=== PATIENT | female | born 1950 | race Caucasian/White ===

== ENCOUNTER 2018-03-24 12:49 | Day surgery (SDC) | payer MEDICARE, OTHER ==
[2018-03-19 09:31] VITALS: BMI 30.3
[~2018-03-24 12:49] MED LIST: DEXAMETHASONE SOD PHOSPHATE 10 MG/ML 1 ML VIAL IV ONE; HYDROmorphone 0.5 MG/0.5 ML SYRINGE IVP PRN; LACTATED RINGERS 1,000 ML IV SCH; MIDAZOLAM 2 MG/2 ML VIAL IV PRN; ONDANSETRON 4 MG/2 ML VIAL IVP ONE; Pre Op ABX Message 1 EACH MISC MISCELLANE ONE
[2018-03-24 13:46] VITALS: TEMP 98.1
[2018-03-24] MEDS ORDERED: IV FLUID CONTINUATION 450 ML IV ONE (15:38)
[2018-03-24] MEDS ORDERED: PROPOFOL 10 MG/ML 20 ML VIAL IV ONE (15:48)
[2018-03-24] MEDS ORDERED: MIDAZOLAM 2 MG/2 ML VIAL ONE (15:48)
[2018-03-24] MEDS ORDERED: LIDOCAINE 1% INJ 10MG/ML (20 ML MDV) ONE (15:48)
[2018-03-24] MEDS ORDERED: fentaNYL (PF) 50 MCG/ML 2 ML AMP ONE (15:48)
[2018-03-24] MEDS ORDERED: ROPIVACAINE 5 MG/ML 30 ML VIAL MISCELLANE ONE (15:52)
[2018-03-24] MEDS ORDERED: LIDOCAINE 2% (PF) 20 MG/ML 10 ML AMP SQ ONE (15:52)
[2018-03-24 15:57] VITALS: RESP 18
[2018-03-24 16:09] VITALS: PULSE 74
[2018-03-24 16:26] VITALS: BP 114/75
--- NOTE | 2018-03-24 20:07 | OP ---
OPERATIVE REPORT DATE OF SERVICE: 03/24/2018 DESCRIPTION OF PROCEDURE: The patient was taken to the Operative Suite where a sedation was administered by the Department of Anesthesia. I then performed a local injection along the line of the incision with a combination of Marcaine and Xylocaine both without epinephrine. The hand was then prepped and draped in the usual manner. The arm was elevated, exsanguinated and the cuff was inflated to 250 mm of mercury. A longitudinal incision was made along the ring finger ray distal to the wrist crease. Dissection was taken through the skin and subcutaneous tissue, initially sharp through the skin and then blunt through the subcutaneous tissue to ensure protection of any potential terminal transverse branches of the palmar cutaneous nerve. The palmar fascia was then incised under direct vision longitudinally exposing the transverse carpal ligament. The transverse carpal ligament also was incised under direct vision. The dissection was then continued proximally beneath the skin under direct vision to release the distal forearm fascia. The median nerve was then reflected free of tenosynovium to ensure no adhesions. The tourniquet was then released. The wound was then irrigated and the skin was closed with a running 5-0 nylon suture. A soft bulky dressing was applied including a volar plaster splint holding the wrist in a neutral slightly extended position. The patient was then taken to the Recovery Room in satisfactory condition. GREGODL / IJN: [id number] /
== END 2018-03-24 16:37 | disposition home or self-care (01) ==
LOC: OR 12:49
PROVIDERS: ATTEND Orthopaedic Surgery Hand Surgery
DX: G56.02 Carpal tunnel syndrome, left upper limb (principal); I10 Essential (primary) hypertension; E78.5 Hyperlipidemia, unspecified; E03.9 Hypothyroidism, unspecified; K21.9 Gastro-esophageal reflux disease without esophagitis; R00.2 Palpitations; E66.9 Obesity, unspecified; Z68.30 Body mass index [BMI] 30.0-30.9, adult; L30.9 Dermatitis, unspecified; Z79.82 Long term (current) use of aspirin; Z79.890 Hormone replacement therapy; Z79.1 Long term (current) use of non-steroidal anti-inflammatories (NSAID); Z79.891 Long term (current) use of opiate analgesic; Z79.899 Other long term (current) drug therapy
CPT/HCPCS: 64721; J2250; J1100; J2001 ×2; J2405; J3010; J2795; J2704

== ENCOUNTER 2024-08-28 01:19 | Observation (INO) | payer MEDICARE ==
--- NOTE | 2024-08-28 02:02 | ED ---
General Adult HPI - General Chief complaint: Extremity Problem,Nontraumatic Stated complaint: left arm pain Time Seen by Provider: 08/28/24 01:57 Source: patient, family, RN notes reviewed Mode of arrival: ambulatory Limitations: no limitations - History of Present Illness Initial comments: Patient is a 74-year-old female with a past medical history significant of hypothyroidism presenting to the ER for evaluation of left upper extremity pain. Patient states for the past few days she has felt "off". She reports she does not feel lightheaded but states "close to it". She states this morning she woke up to her left upper arm pain, weakness and tingling with nausea. Patient states this subsided throughout the day and returned later in the day. Patient reports she did not want to go to sleep as she was concerned this may be cardiac related which prompted an emergency department visit. Patient denies any personal cardiac history but does report an extensive family cardiac history. Patient reports over the past few days she is also felt like her bra was too tight over her chest and recent palpitations yesterday. Patient has not taken a nything for her symptoms at this time. Only medication patient takes is Synthroid and PPI. She denies any current chest pain/dizziness, shortness of breath, fevers, cough, congestion, abdominal pain, back pain, urinary complaints or peripheral edema. - Related Data Home Medications Medication Instructions Recorded Confirmed Aspirin 81 mg PO DAILY 03/19/18 03/24/18 Lansoprazole [Prevacid] 15 mg PO DAILY 03/19/18 03/24/18 Levothyroxine Sodium [Synthroid] 88 mcg PO DAILY 03/19/18 03/24/18 Multivitamins, Thera [Multivitamin 1 tab PO DAILY 03/19/18 03/24/18 (formulary)] Allergies Allergy/AdvReac Type Severity Reaction Status Date / Time No Known Allergies Allergy Verified 08/28/24 01:25 Review of Systems ROS Statement: Those systems with pertinent positive or pertinent negative responses have been documented in the HPI. ROS Other: All systems not noted in ROS Statement are negative. Past Medical History Past Medical History: Hyperlipidemia, Osteoarthritis (OA), Thyroid Disorder Additional Past Medical History / Comment(s): MIGRAINE HEADACHE, OCCASIONAL HEART FLUTTER , History of Any Multi-Drug Resistant Organisms: None Reported Past Surgical History: Bladder Surgery, Hysterectomy, Tonsillectomy Additional Past Surgical History / Comment(s): D&C, RIGHT CARPAL TUNNEL RELEASE, RIGHT AND LEFT ARTHROSCOPIC KNEE, LASIK EYE SURGERY, COLONOSCOPY, Past Anesthesia/Blood Transfusion Reactions: No Reported Reaction Past Psychological History: No Psychological Hx Reported Past Alcohol Use History: Occasional Past Drug Use History: None Reported - Past Family History Mother Family Medical History: Cancer Sister(s) Family Medical History: Cancer Additional Family Medical History / Comment(s): COLON CANCER General Exam Limitations: no limitations General appearance: alert, in no apparent distress Head exam: Present: atraumatic, normocephalic, normal inspection Eye exam: Present: normal appearance, PERRL, EOMI. Absent: scleral icterus, conjunctival injection, periorbital swelling Pupils: Present: normal accommodation Respiratory exam: Present: normal lung sounds bilaterally. Absent: respiratory distress, wheezes, rales, rhonchi, stridor Cardiovascular Exam: Present: regular rate, normal rhythm, normal heart sounds. Absent: systolic murmur, diastolic murmur, rubs, gallop, clicks GI/Abdominal exam: Present: soft, normal bowel sounds. Absent: distended, tend erness, guarding, rebound, rigid Neurological exam: Present: alert, oriented X3, CN II-XII intact, other (mild weakness of RUE 4+ compared to left 5+) Skin exam: Present: warm, dry, intact, normal color. Absent: rash Course Vital Signs 08/28/24 08/28/24 08/28/24 01:20 02:43 03:15 Temperature 97.9 F Pulse Rate 67 67 60 Respiratory 18 16 Rate Blood Pressure 185/133 169/85 130/87 O2 Sat by Pulse 97 97 99 Oximetry - Reevaluation(s) Reevaluation #1: 08/28/24 03:[address] Elizabeth Flores, for admission. HEART score 4 EKG Findings - EKG Comments: EKG Findings:: EKG taken at 129 showing a sinus bradycardia with a first-degree AV block. No ST segment elevations or depressions. No T wave abnormalities. Ventricular rate 58, AR interval 302, QRS duration 93, QT/QTc 412/410. Medical Decision Making - Medical Decision Making Was pt. sent in by a medical professional or institution (, PA, [facility], urgent care, hospital, or alf...) When possible be specific @ -No Did you speak to anyone other than the patient for history (EMS, parent, family, police, friend...)? What history was obtained from this source @ -Patient's , at bedside, aiding in HPI and past medical history. Did you review nursing and triage notes (agree or disagree)? Why? @ -I reviewed and agree with nursing and triage notes Were old charts reviewed (outside hosp., previous admission, EMS record, old EKG, old radiological studies, urgent care reports/EKG's, alf records)? Report findings @ -No old charts were reviewed Differential Diagnosis (chest pain, altered mental status, abdominal pain women, abdominal pain men, vaginal bleeding, weakness, fever, dyspnea, syncope, headache, dizziness, GI bleed, back pain, seizure, CVA, palpatations, mental health, musculoskeletal)? @ -Differential Musculoskeletal: Muscular strain, contusion, ligament sprain, fracture, arthritis, septic arthritis, bursitis, cellulitis, muscle spasm, nerve compression, DVT, arterial occlusion, herpes zoster, electrolyte abnormality, tumor.... This is not meant to be in all inclusive list EKG interpreted by me (3pts min.). @ -As above X-rays interpreted by me (1pt min.). @ -CXR interpreted me negative for consolidations, pneumothorax perfusions. CT interpreted by me (1pt min.). @ -Official report pending at time of admission. U/S interpreted by me (1pt. min.). @ -None done What testing was considered but not performed or refused? (CT, X-rays, U/S, labs)? Why? @ -None What meds were considered but not given or refused? Why? @ -None Did you discuss the management of the patient with other professionals (professionals i.e. , PA, [facility], lab, RT, psych nurse, social science teacher, piece dyer, teacher, licensed loan officer, correctional case records supervisor)? Give summary @ -Case discussed with Dr. Elizabeth Flores, for admission. Was smoking cessation discussed for >3mins.? @ -No Was critical care preformed (if so, how long)? @ -No Were there social determinants of health that impacted care today? How? (Homelessness, low income, unemployed, alcoholism, drug addiction, transportation, low edu. Level, literacy, decrease access to med. care, assisted, rehab)? @ -No Was there de-escalation of care discussed even if they declined (Discuss DNR or withdrawal of care, Hospice)? DNR status @ -No What co-morbidities impacted this encounter? (DM, HTN, Smoking, COPD, CAD, Cancer, CVA, ARF, Chemo, Hep., AIDS, mental health diagnosis, sleep apnea, morbid obesity)? @ -hypothyroidism, hyperlipidemia Was patient admitted / discharged? Hospital course, mention meds given and route, prescriptions, significant lab abnormalities, going to OR and other pertinent info. @ -Admitted. 74-year-old female presented the ER for evaluation of left upper extremity pain/numbness and nausea. Upon rooming, history and physical exam completed. Patient is hypertensive at 185/133 vitals otherwise acceptable limits. Patient in no signs acute distress nontoxic-appearing. Initial troponin undetectable. Viral swabs negative. CXR interpreted me negative. CT brain/CTA head pending at time of admission. Patient given 81 mg ASA, 10mg hydra lazine and 1 L IV fluid bolus in the emergency department. HEART score 4. Given concern of cardiac/neurologic etiology, admission was considered and discussed with Dr. Elizabeth Flores. Patient agreeable for admission. Case discussed with ED attending, Dr. Machuca. Undiagnosed new problem with uncertain prognosis? @ -No Drug Therapy requiring intensive monitoring for toxicity (Heparin, Nitro, Insulin, Cardizem)? @ -No Were any procedures done? @ -No Diagnosis/symptom? @ -Left arm pain rule out cardiac etiology Acute, or Chronic, or Acute on Chronic? @ -Acute Uncomplicated (without systemic symptoms) or Complicated (systemic symptoms)? @ -Complicated Side effects of treatment? @ -No Exacerbation, Progression, or Severe Exacerbation? @ -No Poses a threat to life or bodily function? How? (Chest pain, USA, SC, pneumonia, PE, COPD, DKA, ARF, appy, cholecystitis, CVA, Diverticulitis, Homicidal, Suicidal, threat to staff... and all critical care pts) @ -Yes, cannot rule out ACS. - Lab Data Result diagrams: 08/28/24 01:30 08/28/24 01:30 Lab Results 08/28/24 08/28/24 08/28/24 Range/Units 01:30 01:30 01:30 WBC 4.4 (3.8-10.6) k/uL RBC 5.26 (3.80-5.40) m/uL Hgb 14.2 (11.4-16.0) gm/dL Hct 46.1 H (34.0-46.0) % MCV 87.6 (80.0-100.0) fL MCH 26.9 (25.0-35.0) pg MCHC 30.8 L (31.0-37.0) g/dL RDW 13.1 (11.5-15.5) % Plt Count 216 (150-450) k/uL MPV 8.2 Neutrophils % 37 % Lymphocytes % 49 % Monocytes % 7 % Eosinophils % 3 % Basophils % 1 % Neutrophils # 1.6 (1.3-7.7) k/uL Lymphocytes # 2.2 (1.0-4.8) k/uL Monocytes # 0.3 (0-1.0) k/uL Eosinophils # 0.2 (0-0.7) k/uL Basophils # 0.0 (0-0.2) k/uL PT 10.2 (10.0-12.5) sec INR 0.9 (<1.2) APTT 22.9 (22.0-30.0) sec Sodium 138 (137-145) mmol/L Potassium 4.0 (3.5-5.1) mmol/L Chloride 102 (98-107) mmol/L Carbon Dioxide 27 (22-30) mmol/L Anion Gap 9 mmol/L BUN 14 (7-17) mg/dL Creatinine 0.66 (0.52-1.04) mg/dL Est GFR (CKD-EPI)AfAm >90 (>60 ml/min/1.73 sqM) Est GFR (CKD-EPI)NonAf 89 (>60 ml/min/1.73 sqM) Glucose 107 H (74-99) mg/dL Calcium 10.4 H (8.4-10.2) mg/dL Magnesium 2.0 (1.6-2.3) mg/dL Total Bilirubin 0.7 (0.2-1.3) mg/dL AST 35 (14-36) U/L ALT 26 (4-34) U/L Alkaline Phosphatase 70 (38-126) U/L Troponin I (0.000-0.034) ng/mL Total Protein 8.1 (6.3-8.2) g/dL Albumin 5.0 (3.5-5.0) g/dL Influenza Type A (PCR) (Not Detectd) Influenza Type B (PCR) (Not Detectd) RSV (PCR) (Not Detectd) SARS-CoV-2 (PCR) (Not Detectd) 08/28/24 08/28/24 Range/Units 01:30 02:05 WBC (3.8-10.6) k/uL RBC (3.80-5.40) m/uL Hgb (11.4-16.0) gm/dL Hct (34.0-46.0) % MCV (80.0-100.0) fL MCH (25.0-35.0) pg MCHC (31.0-37.0) g/dL RDW (11.5-15.5) % Plt Count (150-450) k/uL MPV Neutrophils % % Lymphocytes % % Monocytes % % Eosinophils % % Basophils % % Neutrophils # (1.3-7.7) k/uL Lymphocytes # (1.0-4.8) k/uL Monocytes # (0-1.0) k/uL Eosinophils # (0-0.7) k/uL Basophils # (0-0.2) k/uL PT (10.0-12.5) sec INR (<1.2) APTT (22.0-30.0) sec Sodium (137-145) mmol/L Potassium (3.5-5.1) mmol/L Chloride (98-107) mmol/L Carbon Dioxide (22-30) mmol/L Anion Gap mmol/L BUN (7-17) mg/dL Creatinine (0.52-1.04) mg/dL Est GFR (CKD-EPI)AfAm (>60 ml/min/1.73 sqM) Est GFR (CKD-EPI)NonAf (>60 ml/min/1.73 sqM) Glucose (74-99) mg/dL Calcium (8.4-10.2) mg/dL Magnesium (1.6-2.3) mg/dL Total Bilirubin (0.2-1.3) mg/dL AST (14-36) U/L ALT (4-34) U/L Alkaline Phosphatase (38-126) U/L Troponin I <0.012 (0.000-0.034) ng/mL Total Protein (6.3-8.2) g/dL Albumin (3.5-5.0) g/dL Influenza Type A (PCR) Not Detected (Not Detectd) Influenza Type B (PCR) Not Detected (Not Detectd) RSV (PCR) Not Detected (Not Detectd) SARS-CoV-2 (PCR) Not Detected (Not Detectd) - Radiology Data Radiology results: image reviewed Disposition Clinical Impression: Left arm pain Disposition: ADMITTED IP TO THIS [facility] Condition: Stable Referrals: Zacarias Lewis MD [Primary Care Provider] - 1-2 days Time of Disposition: 03:55
[2024-08-28] MEDS: ASPIRIN 81 MG PO STA (02:10)
[2024-08-28 02:11] LABS: Basophils % (A) 1 %; Eosinophils # (A) 0.2 k/uL (0-0.7); Eosinophils % (A) 3 %; HCT 46.1 % (34.0-46.0); HGB 14.2 gm/dL (11.4-16.0); Lymphocytes # (A) 2.2 k/uL (1.0-4.8); Lymphocytes % (A) 49 %; MCH 26.9 pg (25.0-35.0); MCHC 30.8 g/dL (31.0-37.0); MCV 87.6 fL (80.0-100.0); Mean Platelet Volume 8.2; Monocytes # (A) 0.3 k/uL (0-1.0); Monocytes % (A) 7 %; Neutrophils # (A) 1.6 k/uL (1.3-7.7); Neutrophils % (A) 37 %; Platelet Count 216 k/uL (150-450); RBC 5.26 m/uL (3.80-5.40); RDW 13.1 % (11.5-15.5); WBC 4.4 k/uL (3.8-10.6)
[2024-08-28] MEDS: hydrALAZINE HCL 20 MG/ML 1 ML VIAL IVP STA (02:11)
[2024-08-28 02:16] LABS: ALT 26 U/L (4-34); AST 35 U/L (14-36); African American GFR (CKD) >90 (>60 ml/min/1.73 sqM); Alkaline Phosphatase 70 U/L (38-126); Anion Gap 9 mmol/L; Blood Urea Nitrogen 14 mg/dL (7-17); Calcium 10.4 mg/dL (8.4-10.2); Carbon Dioxide 27 mmol/L (22-30); Chloride 102 mmol/L (98-107); Glucose 107 mg/dL (74-99); Non-African American GFR(CKD) 89 (>60 ml/min/1.73 sqM); Sodium 138 mmol/L (137-145); Total Bilirubin 0.7 mg/dL (0.2-1.3); Total Protein 8.1 g/dL (6.3-8.2)
[2024-08-28 02:32] LABS: INR 0.9 (<1.2); Partial Thromboplastin Time 22.9 sec (22.0-30.0); Prothrombin Time 10.2 sec (10.0-12.5)
[2024-08-28 03:05] LABS: Influenza A Not Detected (Not Detectd); Influenza B Not Detected (Not Detectd); RSV Not Detected (Not Detectd)
[2024-08-28] MEDS ORDERED: NALOXONE 0.4 MG/ML 1 ML VIAL IV PRN (03:52)
--- NOTE | 2024-08-28 04:08 | CT ---
EXAM: CT Head Without Intravenous Contrast CLINICAL HISTORY: ITS.REASON CT Reason: dizziness TECHNIQUE: Axial computed tomography images of the head/brain without intravenous contrast. CTDI is 48.9 mGy and DLP is 1212.4 mGy-cm. This CT exam was performed using one or more of the following dose reduction techniques: automated exposure control, adjustment of the mA and/or kV according to patient size, and/or use of iterative reconstruction technique. COMPARISON: No relevant prior studies available. FINDINGS: Brain: No hemorrhage or mass effect. Ventricles: No hydrocephalus. Bones/joints: Unremarkable. Soft tissues: Unremarkable. Sinuses: No air fluid level. Mastoid air cells: Clear. IMPRESSION: No acute hemorrhage, hydrocephalus, or mass effect.
--- NOTE | 2024-08-28 04:12 | XR ---
EXAM: XR Chest, 2 Views CLINICAL HISTORY: ITS.REASON XR Reason: Chest Pain TECHNIQUE: Frontal and lateral views of the chest. COMPARISON: No relevant prior studies available. FINDINGS: Lungs: No consolidation or mass. Pleural space: No effusion. Heart: Mild cardiomegaly. Bones/joints: No acute findings. IMPRESSION: No acute cardiopulmonary process.
[2024-08-28] MEDS: SODIUM CHLORIDE 0.9% 1,000 ML IV ONE (04:14)
--- NOTE | 2024-08-28 04:26 | CT ---
EXAM: CT Angiography Head With Intravenous Contrast CLINICAL HISTORY: ITS.REASON CT Reason: dizziness TECHNIQUE: Axial computed tomographic angiography images of the head with intravenous contrast. CTDI is 42.9 mGy and DLP is 282.3 mGy-cm. This CT exam was performed using one or more of the following dose reduction techniques: automated exposure control, adjustment of the mA and/or kV according to patient size, and/or use of iterative reconstruction technique. MIP reconstructed images were created and reviewed. COMPARISON: No relevant prior studies available. FINDINGS: Right internal carotid artery: No significant stenosis. No aneurysm. Right anterior cerebral artery: No significant stenosis. No aneurysm. Right middle cerebral artery: No significant stenosis. No aneurysm. Right posterior cerebral artery: No significant stenosis. No aneurysm. Right vertebral artery: Unremarkable. Left internal carotid artery: No significant stenosis. No aneurysm. Left anterior cerebral artery: No significant stenosis. No aneurysm. Left middle cerebral artery: No significant stenosis. No aneurysm. Left posterior cerebral artery: No significant stenosis. No aneurysm. Left vertebral artery: Unremarkable. Basilar artery: No significant stenosis. No aneurysm. IMPRESSION: No significant stenosis.
--- NOTE | 2024-08-28 04:45 | P.HPIM ---
History of Present Illness H&P Date: 08/28/24 Patient is a 74-year-old female with a PMH of hypothyroidism who presents to the emergency room with complaints of left arm pain and paresthesias. Patient reports that her symptoms started this morning when she noticed intermittent left arm achy pain. She also reports experiencing intermittent headaches over the past several days and not quite feeling like herself. Reports that her arm discomfort today was also accompanied by some paresthesias of the left arm along with some palpitations. Denied experiencing shortness of breath, nausea, vomiting, fever, chills, cough. Denied experiencing weakness anywhere. Reports that her pain had resolved shortly after arrival at the emergency room and was currently symptom-free at the time of interview. Head CT in the emergency room was unremarkable with CT brain also unremarkable. Chest x-ray revealed no acute abnormalities with EKG showing sinus bradycardia with first-degree AV block at [address]/T wave changes noted as reviewed by me. Laboratory evaluation did reveal a troponin less than 0.012 with hemoglobin 14.2 and platelet count 216 with sodium 138, potassium 4.0, BUN 14, creatinine 0.66 with glucose 107. ED documentation reviewed and case discussed with ED provider. Review of systems: Pertinent positives and negatives as discussed in HPI, a complete review of systems was performed and all other systems are negative. Physical examination: Vital signs reviewed General: non toxic, no distress, appears at stated age, obese Derm: no unusual rashes/lesions, warm Head: atraumatic, normocephalic, symmetric Eyes: EOMI, no lid lag, anicteric sclera, pupils equal round reactive to light ENT: Nose and ears atraumatic Neck: No cervical lymphadenopathy, trachea midline, supple Mouth: no lip lesion, mucus membranes moist Cardiovascular: S1S2 reg, no murmur, positive dorsalis pedis pulse bilateral, no edema Lungs: CTA bilateral, no rhonchi, no rales, no accessory muscle use Abdominal: soft, nontender to palpation, no guarding Ext: muscle strength 5 out of 5 in all 4 extremities grossly, no gross muscle atrophy, no contractures, Neuro: CN II-XI grossly intact, no gross focal neuro deficits Psych: Alert, oriented, appropriate affect Assessment: Left arm pain, rule out ACS Chronic conditions: Hypothyroidism Imaging: Head CT in the emergency room was unremarkable with CT brain also unremarkable. Chest x-ray revealed no acute abnormalities with EKG showing sinus bradycardia with first-degree AV block at [address]/T wave changes noted as reviewed by me. Data Review: Laboratory evaluation did reveal a troponin less than 0.012 with hemoglobin 14.2 and platelet count 216 with sodium 138, potassium 4.0, BUN 14, creatinine 0.66 with glucose 107. Plan: Cardiology consulted Continue with aspirin and statin Trend troponin Cardiac monitoring Resume home medications once reconciled DVT prophylaxis: Lovenox subcu The patient is admitted with an anticipated fewer than 2 midnight stay for evalu ation of chest pain CODE STATUS: Full Code Discussed with: Patient Anticipated discharge place: Home Past Medical History Past Medical History: Hyperlipidemia, Osteoarthritis (OA), Thyroid Disorder Additional Past Medical History / Comment(s): MIGRAINE HEADACHE, OCCASIONAL HEART FLUTTER , History of Any Multi-Drug Resistant Organisms: None Reported Past Surgical History: Bladder Surgery, Hysterectomy, Tonsillectomy Additional Past Surgical History / Comment(s): D&C, RIGHT CARPAL TUNNEL RELEASE, RIGHT AND LEFT ARTHROSCOPIC KNEE, LASIK EYE SURGERY, COLONOSCOPY, Past Anesthesia/Blood Transfusion Reactions: No Reported Reaction Past Psychological History: No Psychological Hx Reported Past Alcohol Use History: Occasional Past Drug Use History: None Reported - Past Family History Mother Family Medical History: Cancer Sister(s) Family Medical History: Cancer Additional Family Medical History / Comment(s): COLON CANCER Medications and Allergies Home Medications Medication Instructions Recorded Confirmed Type Aspirin 81 mg PO DAILY 03/19/18 03/24/18 History Lansoprazole [Prevacid] 15 mg PO DAILY 03/19/18 03/24/18 History Levothyroxine Sodium [Synthroid] 88 mcg PO DAILY 03/19/18 03/24/18 History Multivitamins, Thera [Multivitamin 1 tab PO DAILY 03/19/18 03/24/18 History (formulary)] Allergies Allergy/AdvReac Type Severity Reaction Status Date / Time No Known Allergies Allergy Verified 08/28/24 01:25 Physical Exam Vitals: Vital Signs Temp Pulse Resp BP Pulse Ox 08/28/24 03:15 60 130/87 99 08/28/24 02:43 67 16 169/85 97 08/28/24 01:20 97.9 F 67 18 185/133 97 Intake and Output 08/27/24 08/27/24 08/28/24 14:59 22:59 06:59 Other: Weight 97.522 kg Results CBC & Chem 7: 08/28/24 01:30 08/28/24 01:30 Labs: Abnormal Lab Results - Last 24 Hours (Table) 08/28/24 08/28/24 Range/Units 01:30 01:30 Hct 46.1 H (34.0-46.0) % MCHC 30.8 L (31.0-37.0) g/dL Glucose 107 H (74-99) mg/dL Calcium 10.4 H (8.4-10.2) mg/dL
[2024-08-28] MEDS: ATORVASTATIN 80 MG TAB PO STA (05:37)
[2024-08-28 08:15] VITALS: TEMP 98.1
[2024-08-28] MEDS: ASPIRIN 81 MG PO SCH (08:17)
[2024-08-28] MEDS: ACETAMINOPHEN TAB 325 MG TAB PO PRN (08:18)
[2024-08-28] MEDS: ENOXAPARIN 40 MG/0.4 ML SYRINGE SQ SCH (08:20)
--- NOTE | 2024-08-28 09:08 | P.CRDCN ---
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 We have been asked to evaluate the patient for chest pain. Patient states that she had fluttering in her heart for about a week. Not really fast but palpitations. Yesterday in the morning she had some throbbing pain in the left arm but not in the chest. She states it lasted about 30 to 45 minutes and she was laying in bed at the time looking at her phone. At that time of the discomfort in the arm, she did not have any palpitations. She states she has had some nausea no vomiting no diarrhea no dizziness or lightheadedness. She denies history of diabetes. She does have history of hypertension but because she lost weight she was not taking any medications. She presented with a blood pressure 185/133 and now 138/92 after IV hydralazine. Discussed that the palpitations most likely are due to uncontrolled hypertension but also at risk for palpitations due to taking fish oil which she has agreed to discontinue. Heart rate is running in the 60s, pulse ox 95% on room air. -EKG: Sinus rhythm with no acute changes. -Chest x-ray: No acute process. -CT brain: No acute hemorrhage, hydrocephalus or mass effect. -CTA chest: No significant stenosis. -Laboratory studies: Hemoglobin 14.2. INR and CMP unremarkable. Troponin negative x 2. Cepheid viral panel not detected. -Home cardiac medications: Magnesium oxide Review Of Systems: At the time of my exam: CONSTITUTIONAL: Denies fever or chills. HEENT: Denies blurred vision, vision changes, or eye pain. Denies hemoptysis CARDIOVASCULAR: Denies chest pain. Denies orthopnea. Denies PND. Denies palpitations RESPIRATORY: Denies shortness of breath. GASTROINTESTINAL: Denies abdominal pain. Denies nausea or vomiting. HEMATOLOGIC: Denies bleeding disorders. GENITOURINARY: Denies any blood in urine. SKIN: Denies puritis. Denies rash. Physical examination: Gen: This is a 74-year-old female in no acute distress VS: reviewed HEENT: Head is atraumatic, normocephalic. Pupils equal, round. Sclerae is anicteric. NECK: Supple. No JVD. LUNGS: Clear to auscultation. No wheezes or rhonchi. No intercostal retr actions. HEART: Regular rate and rhythm. No murmur. ABDOMEN: Soft No tenderness. EXTREMITIES: No pedal edema. No calf tenderness. NEUROLOGICAL: Patient is awake, alert and oriented x3. Assessment: Atypical chest pain Left arm pain Palpitations most likely due to hypertension/fish oil Uncontrolled hypertension Hyperlipidemia Plan: Start patient on losartan 50 mg daily and Lipitor 20 mg daily Discontinue aspirin Discontinue fish oil at home No added salt diet Weight loss Patient is cleared for discharge and may follow-up with Dr. Quintanilla in 1 to 2 weeks. Thank you kindly for this consultation. Nurse practitioner note has been reviewed, I agree with documented findings and plan of care. Patient was seen and examined. Past Medical History Past Medical History: Hyperlipidemia, Osteoarthritis (OA), Thyroid Disorder Additional Past Medical History / Comment(s): MIGRAINE HEADACHE, OCCASIONAL HEART FLUTTER , History of Any Multi-Drug Resistant Organisms: None Reported Past Surgical History: Bladder Surgery, Hysterectomy, Tonsillectomy Additional Past Surgical History / Comment(s): D&C, RIGHT CARPAL TUNNEL RELEASE, RIGHT AND LEFT ARTHROSCOPIC KNEE, LASIK EYE SURGERY, COLONOSCOPY, Past Anesthesia/Blood Transfusion Reactions: No Reported Reaction Past Psychological History: No Psychological Hx Reported Past Alcohol Use History: Occasional Past Drug Use History: None Reported - Past Family History Mother Family Medical History: Cancer Sister(s) Family Medical History: Cancer Additional Family Medical History / Comment(s): COLON CANCER Medications and Allergies Home Medications Medication Instructions Recorded Confirmed Type Lansoprazole [Prevacid] 15 mg PO DAILY PRN 03/19/18 08/28/24 History Levothyroxine Sodium [Synthroid] 88 mcg PO DAILY 03/19/18 08/28/24 History Multivitamins, Thera [Multivitamin 1 tab PO DAILY 03/19/18 08/28/24 History (formulary)] Biotin 5 mg PO DAILY 08/28/24 08/28/24 History Calcium Carbonate [Calcium] 600 mg PO DAILY 08/28/24 08/28/24 History Cholecalciferol (Vitamin D3) 75 mcg PO DAILY 08/28/24 08/28/24 History [Vitamin D3 (3000 Iu)] Ciclopirox 1 applic TOPICAL DAILY PRN 08/28/24 08/28/24 History Clobetasol Propionate [Clobex .05% 1 applic TOPICAL DAILY PRN 08/28/24 08/28/24 History Shampoo] Fluticasone Nasal [place] [Flonase 2 spray EA NOSTRIL DAILY PRN 08/28/24 08/28/24 History Nasal [place]] Glucosamine Sulfate 500 mg PO DAILY 08/28/24 08/28/24 History Lutein 20 mg PO DAILY 08/28/24 08/28/24 History Magnesium Oxide [Magnesium] 500 mg PO DAILY 08/28/24 08/28/24 History Niacin 500 mg PO DAILY 08/28/24 08/28/24 History Potassium Citrate 99 mg PO DAILY 08/28/24 08/28/24 History Turmeric Root Extract [Turmeric] 500 mg PO DAILY 08/28/24 08/28/24 History Allergies Allergy/AdvReac Type Severity Reaction Status Date / Time No Known Allergies Allergy Verified 08/28/24 07:42 Physical Exam Vitals: Vital Signs Temp Pulse Resp BP Pulse Ox 08/28/24 08:15 98.1 F 60 18 138/92 96 08/28/24 06:59 97.5 F L 67 16 146/91 97 08/28/24 03:15 60 130/87 99 08/28/24 02:43 67 16 169/85 97 08/28/24 01:20 97.9 F 67 18 185/133 97 Intake and Output 08/27/24 08/28/24 08/28/24 22:59 06:59 14:59 Other: Weight 97.522 kg Results 08/28/24 01:30 08/28/24 01:30 Cardiac Enzymes 08/28/24 08/28/24 08/28/24 Range/Units 01:30 01:30 05:42 AST 35 (14-36) U/L Troponin I <0.012 <0.012 (0.000-0.034) ng/mL Coagulation 08/28/24 Range/Units 01:30 PT 10.2 (10.0-12.5) sec APTT 22.9 (22.0-30.0) sec CBC 08/28/24 Range/Units 01:30 WBC 4.4 (3.8-10.6) k/uL RBC 5.26 (3.80-5.40) m/uL Hgb 14.2 (11.4-16.0) gm/dL Hct 46.1 H (34.0-46.0) % Plt Count 216 (150-450) k/uL Comprehensive Metabolic Panel 08/28/24 Range/Units 01:30 Sodium 138 (137-145) mmol/L Potassium 4.0 (3.5-5.1) mmol/L Chloride 102 (98-107) mmol/L Carbon Dioxide 27 (22-30) mmol/L BUN 14 (7-17) mg/dL Creatinine 0.66 (0.52-1.04) mg/dL Glucose 107 H (74-99) mg/dL Calcium 10.4 H (8.4-10.2) mg/dL AST 35 (14-36) U/L ALT 26 (4-34) U/L Alkaline Phosphatase 70 (38-126) U/L Total Protein 8.1 (6.3-8.2) g/dL Albumin 5.0 (3.5-5.0) g/dL Current Medications Generic Name Dose Route Start Last Admin Trade Name Freq PRN Reason Stop Dose Admin Acetaminophen 650 mg 08/28/24 03:52 08/28/24 08:18 Acetaminophen Tab 325 Mg Tab PO 650 mg Q6HR PRN Administration Mild Pain or Fever > 100.5 Aspirin 81 mg 08/28/24 09:00 08/28/24 08:17 Aspirin 81 Mg PO 81 mg DAILY IVAN Administration Atorvastatin Calcium 80 mg 08/28/24 21:00 Atorvastatin 80 Mg Tab PO HS [facility] Enoxaparin Sodium 40 mg 08/28/24 09:00 08/28/24 08:20 Enoxaparin 40 Mg/0.4 Ml Syringe SQ 40 mg DAILY IVAN Administration Naloxone HCl 0.2 mg 08/28/24 03:52 Naloxone 0.4 Mg/Ml 1 Ml Vial IV Q2M PRN Opioid Reversal Intake and Output 08/27/24 08/28/24 08/28/24 22:59 06:59 14:59 Other: Weight 97.522 kg 08/28/24 01:30 08/28/24 01:30
[2024-08-28] MEDS: LOSARTAN 50 MG TAB PO SCH (09:17)
[2024-08-28 11:40] VITALS: BP 166/97; PULSE 57; RESP 18
--- NOTE | 2024-08-28 12:23 | P.DS ---
Providers Date of admission: 08/28/24 05:10 Expected date of discharge: 08/28/24 Attending physician: Crystal Johnson MD Consults: 08/28/24 03:52 Consult Physician Urgent Consulting Provider: Ford Doe Consult Reason/Comments: left arm numbness Do you want consulting provider notified?: Yes, Notify in am Primary care physician: Zacarias Harkins [facility] Course: 74 year old F with hypothyroidism presents to the ED for LUE paresthesias. In the ED she underwent extensive evaluation. BP 183/133, HR 67, T 97.9F, RR 18, 97% on RA. CBC, Coag panel, CMP significant for Hct 46.1, glu 107, Ca 10.4. Mag 2. Trop < 0.012 x 2. COVID, RSV, Flu neg. EKG sinus bradycardia with first degree AV block. Brain CT and CTA head and neck negative. CXR negative. Patient was admitted for Cardiology evaluation. Cardiology added Losartan and Lipitor and cleared the patient for discharge. 08/28 Patient was seen and examined. No chest pain. LUE numbness improving. General: non toxic, no distress, appears at stated age Derm: warm, dry Head: atraumatic, normocephalic, symmetric Mouth: no lip lesion, mucus membranes moist Cardiovascular: S1S2 reg, no murmur Lungs: Clear to auscultation bilaterally, no rales , no accessory muscle use Ext: no gross muscle atrophy, no edema, no contractures Neuro: no focal neuro deficits Psych: Alert and oriented. Discharge Diagnosis: LUE numbness likely axillary nerve impingement Hypertensive urgency Hypothyroidism This complex discharge took 35 minutes to complete. Patient Condition at Discharge: Stable Plan - Discharge Summary New Discharge Prescriptions: New Losartan [Cozaar] 50 mg PO DAILY #30 tab Acetaminophen Tab [Tylenol] 650 mg PO Q6HR PRN tab PRN Reason: Mild Pain Or Fever > 100.5 Atorvastatin [Lipitor] 20 mg PO HS #30 tab Continue Multivitamins, Thera [Multivitamin (formulary)] 1 tab PO DAILY Lansoprazole [Prevacid] 15 mg PO DAILY PRN PRN Reason: GERD Levothyroxine Sodium [Synthroid] 88 mcg PO DAILY Turmeric Root Extract [Turmeric] 500 mg PO DAILY Fluticasone Nasal [place] [Flonase Nasal [place]] 2 spray EA NOSTRIL DAILY PRN PRN Reason: Congestion Clobetasol Propionate [Clobex .05% Shampoo] 1 applic TOPICAL DAILY PRN PRN Reason: HAIR WASHING Potassium Citrate 99 mg PO DAILY Biotin 5 mg PO DAILY Niacin 500 mg PO DAILY Magnesium Oxide [Magnesium] 500 mg PO DAILY Lutein 20 mg PO DAILY Glucosamine Sulfate 500 mg PO DAILY Cholecalciferol (Vitamin D3) [Vitamin D3 (3000 Iu)] 75 mcg PO DAILY Calcium Carbonate [Calcium] 600 mg PO DAILY Ciclopirox 1 applic TOPICAL DAILY PRN PRN Reason: TOENAIL FUNGUS Discontinued [place]-3/Dha/Epa/Fish Oil [Fish Oil 1,000 mg Softgel] 1 cap PO DAILY Discharge Medication List Lansoprazole [Prevacid] 15 mg PO DAILY PRN 03/19/18 [History] Levothyroxine Sodium [Synthroid] 88 mcg PO DAILY 03/19/18 [History] Multivitamins, Thera [Multivitamin (formulary)] 1 tab PO DAILY 03/19/18 [History] Acetaminophen Tab [Tylenol] 650 mg PO Q6HR PRN tab 08/28/24 [Rx] Atorvastatin [Lipitor] 20 mg PO HS #30 tab 08/28/24 [Rx] Biotin 5 mg PO DAILY 08/28/24 [History] Calcium Carbonate [Calcium] 600 mg PO DAILY 08/28/24 [History] Cholecalciferol (Vitamin D3) [Vitamin D3 (3000 Iu)] 75 mcg PO DAILY 08/28/24 [History] Ciclopirox 1 applic TOPICAL DAILY PRN 08/28/24 [History] Clobetasol Propionate [Clobex .05% Shampoo] 1 applic TOPICAL DAILY PRN 08/28/24 [History] Fluticasone Nasal [place] [Flonase Nasal [place]] 2 spray EA NOSTRIL DAILY PRN 08/28/24 [History] Glucosamine Sulfate 500 mg PO DAILY 08/28/24 [History] Losartan [Cozaar] 50 mg PO DAILY #30 tab 08/28/24 [Rx] Lutein 20 mg PO DAILY 08/28/24 [History] Magnesium Oxide [Magnesium] 500 mg PO DAILY 08/28/24 [History] Niacin 500 mg PO DAILY 08/28/24 [History] Potassium Citrate 99 mg PO DAILY 08/28/24 [History] Turmeric Root Extract [Turmeric] 500 mg PO DAILY 08/28/24 [History] Follow up Appointment(s)/Referral(s): Santosh Quintanilla MD [STAFF PHYSICIAN] - 2 Weeks Zacarias Lewis MD [Primary Care Provider] - 1-2 days Activity/Diet/Wound Care/Special Instructions: Diet: Low salt Discharge Disposition: HOME SELF-CARE
[2024-08-28] MEDS ORDERED: ATORVASTATIN 20 MG TAB PO SCH (21:00)
[2024-08-28] MEDS ORDERED: ATORVASTATIN 80 MG TAB PO SCH (21:00)
== END 2024-08-28 11:39 | disposition home or self-care (01) ==
LOC: EC 01:19 → 6NMEDSUR 05:10
PROVIDERS: ADMIT Internal Medicine; ATTEND Internal Medicine
DX: R20.0 Anesthesia of skin (principal); M79.602 Pain in left arm; R07.89 Other chest pain; E03.9 Hypothyroidism, unspecified; E78.5 Hyperlipidemia, unspecified; I16.0 Hypertensive urgency; I10 Essential (primary) hypertension; R00.2 Palpitations; Z11.52 Encounter for screening for COVID-19; Z79.82 Long term (current) use of aspirin; Z79.890 Hormone replacement therapy
CPT/HCPCS: 96361; 96372; 96374; 99285; 36415; 93005; 80053; 83735; 84484; 85025; 85610; 85730; 87636; 71046; 70496; 70450; G0378; J0360; J1650; Q9967